=== PATIENT | female | born 1995 | race Caucasian/White ===

== ENCOUNTER 2019-03-14 12:19 | Emergency (ER) | payer SELFPAY ==
[~2019-03-14] VITALS: Ht 157.5 cm; Wt 54.4 kg
[2019-03-14 13:03] VITALS: BP_SYST 153
--- NOTE | 2019-03-14 13:05 | NUR ---
Patient to [facility] ,POLICE AT BEDSIDE
--- NOTE | 2019-03-14 13:06 | NUR ---
ER at bedside examining patient.
--- NOTE | 2019-03-14 13:08 | NUR ---
PT BIB PD FOR MED CLEARANCE
[2019-03-14 13:11] VITALS: BP_SYST 153
--- NOTE | 2019-03-14 13:11 | NUR ---
Patient given written and verbal discharge instructions and verbalizes understanding. ER MD discussed with patient the results and treatment provided. Patient in stable condition. ID arm band removed. NO Rx of given. Patient educated on pain management and to follow up with PMD. Pain Scale 0 Opportunity for questions provided and answered. Medication side effect fact sheet provided. PT DISCHARGED TO POLICE CUSTODY
== END 2019-03-14 13:11 | disposition home or self-care (01) ==
LOC: SED 12:19
DX: Z02.89 Encounter for other administrative examinations (principal)
CPT/HCPCS: 99283